=== PATIENT | male | born 1935 | race Caucasian/White ===

== ENCOUNTER 2021-02-16 14:10 | Inpatient (IN) | payer MEDICARE, OTHER ==
[~2021-02-16] VITALS: Ht 177.8 cm; Wt 79.0 kg
[~2021-02-16 14:10] MED LIST: ASPI-247 GT; HYDR-4833 PO; LEV500T PO
[2021-02-16 17:07] LABS: Basophils # (auto) 0.1 10 ^3/uL (0-0.2); Basophils % (auto) 0.7 % (0.0-2.0); Eosinophils # (auto) 0 10 ^3/uL (0-0.8); Eosinophils % (auto) 0.3 % (0.0-7.0); Hematocrit 48.7 % (41.0-53.0); Hemoglobin 16.6 g/dL (13.5-17.5); Lymphocytes # (auto) 0.9 10 ^3/uL (0.4-5.4); Lymphocytes % (auto) 8.7 % (10.0-50.0); Mean Corpuscular Hemoglobin 30.6 pg (28.0-32.0); Mean Corpuscular Hgb Conc. 34.2 g/dL (32.0-36.0); Mean Corpuscular Volume 89.6 fL (80.0-100.0); Monocytes # (auto) 0.5 10 ^3/uL (0-1.3); Monocytes % (auto) 4.8 % (0.0-12.0); Neutrophils # (auto) 8.8 10 ^3/uL (1.6-8.6); Neutrophils % (auto) 85.5 % (37.0-80.0); Nucleated Red Blood Cells % 0.1 %; Red Blood Cells 5.43 10^6/uL (4.5-5.90); Red Cell Distribution Width 13.7 % (11.8-14.3); White Blood Cell 10.3 10^3/uL (4.4-10.8)
[2021-02-16 17:30] LABS: Chloride 108 mmol/L (98-107); Potassium 3.6 mmol/L (3.5-5.1); Sodium 141 mmol/L (136-145)
[2021-02-16 17:40] LABS: Alanine Aminotransferase 19 U/L (16-61); Albumin 3.4 g/dL (3.4-5.0); Alkaline Phosphatase 69 U/L (45-117); Anion Gap 2 (5-15); Aspartate Aminotransferase 14 U/L (15-37); Bilirubin, Total 0.9 mg/dL (0.2-1.0); Blood Urea Nitrogen 17 mg/dL (7-18); Calcium 9.6 mg/dL (8.5-10.1); Carbon Dioxide 31 mmol/L (21-32); GFR African American 73 mL/min; GFR Non-African American 61 mL/min; Glucose 95 mg/dL (74-106); Lipase 101 U/L (73-393); Magnesium 2.6 mg/dL (1.6-2.6); Total Protein 7.3 g/dL (6.4-8.2)
[2021-02-16] MEDS ORDERED: MORPHINE SULF INJ 2 MG/ML SYRINGE 1ML IV ONE (19:00)
[2021-02-16] MEDS ORDERED: cloNIDine HCL 0.1 MG TAB PO ONE (19:00)
[2021-02-16] MEDS ORDERED: ONDANSETRON HCL 4 MG/2 ML VIAL IV ONE (19:00)
[2021-02-16] MEDS ORDERED: NITROGLYCERIN 0.4 MG SL TAB SL PRN (22:00)
[2021-02-16] MEDS ORDERED: hydrALAZINE HCL 20 MG/ML VL IV PRN (22:00)
[2021-02-16] MEDS ORDERED: ONDANSETRON HCL 4 MG/2 ML VIAL IV PRN (22:00)
[2021-02-16] MEDS ORDERED: ACETAMINOPHEN 325 MG TAB PO PRN (22:00)
[2021-02-16] MEDS ORDERED: HYDROcodone-ACET 5/325MG TAB PO PRN (22:00)
[2021-02-16] MEDS ORDERED: MORPHINE SULF INJ 2 MG/ML SYRINGE 1ML IV PRN (22:00)
[2021-02-16] MEDS: ASCORBIC ACID 500 MG TAB PO SCH (23:38)
[2021-02-17] VITALS (8 sets, daily range): BP systolic 102–182; BP diastolic 71–94
[2021-02-17] MEDS: DOCUSATE SOD 100 MG CAP PO PRN (02:02)
[2021-02-17 05:25] LABS: Basophils # (auto) 0.1 10 ^3/uL (0-0.2); Basophils % (auto) 0.9 % (0.0-2.0); Eosinophils # (auto) 0.2 10 ^3/uL (0-0.8); Eosinophils % (auto) 1.2 % (0.0-7.0); Hematocrit 45.3 % (41.0-53.0); Hemoglobin 15.7 g/dL (13.5-17.5); Lymphocytes # (auto) 1.3 10 ^3/uL (0.4-5.4); Lymphocytes % (auto) 10.7 % (10.0-50.0); Mean Corpuscular Hemoglobin 30.8 pg (28.0-32.0); Mean Corpuscular Hgb Conc. 34.7 g/dL (32.0-36.0); Mean Corpuscular Volume 88.8 fL (80.0-100.0); Monocytes # (auto) 0.8 10 ^3/uL (0-1.3); Neutrophils # (auto) 10.2 10 ^3/uL (1.6-8.6); Neutrophils % (auto) 81.2 % (37.0-80.0); Red Cell Distribution Width 13.3 % (11.8-14.3); White Blood Cell 12.5 10^3/uL (4.4-10.8)
[2021-02-17] MEDS ORDERED: MORPHINE SULF INJ 2 MG/ML SYRINGE 1ML IV PRN (05:30)
[2021-02-17 05:47] LABS: Albumin 3.3 g/dL (3.4-5.0); Calcium 8.9 mg/dL (8.5-10.1); Potassium 4.3 mmol/L (3.5-5.1)
[2021-02-17 05:53] LABS: BUN/Creatinine Ratio 15.3; Bilirubin, Total 0.9 mg/dL (0.2-1.0); Total Protein 6.9 g/dL (6.4-8.2)
[2021-02-17] MEDS ORDERED: MANNITOL FTV 25% 12.5 GM/50 ML 50 ML IV ONE (09:45)
[2021-02-17] MEDS: FAMOTIDINE 20 MG TAB PO SCH (11:36)
[2021-02-17] MEDS: MULTIPLE VITAMIN TAB PO SCH (11:36)
[2021-02-17] MEDS: ZINC SULFATE 220mg CAP or TAB PO SCH (11:36)
[2021-02-17] MEDS: HEPARIN SODIUM (PORCINE) 5000 UNITS/ML 1ML VIAL SC SCH ×2 (11:37→21:52)
[2021-02-17] MEDS: ASCORBIC ACID 500 MG TAB PO SCH ×2 (11:37→21:51)
[2021-02-17] MEDS: amLODIPine BESYLATE 5 MG TAB PO SCH (11:43)
[2021-02-17] MEDS ORDERED: TAMSULOSIN HYDROCHLORIDE 0.4 MG CAP PO SCH (18:00)
[2021-02-18] MEDS: DOCUSATE SOD 100 MG CAP PO PRN ×2 (02:04)
[2021-02-18 06:32] LABS: Urine Bacteria NONE SEEN /hpf (None Seen); Urine Blood 2+ /uL (Negative); Urine Specific Gravity 1.009 (1.001-1.035); Urine WBC 1 /hpf (0 - 3)
[2021-02-18 09:00] VITALS: BP 140/76
[2021-02-18] MEDS: MULTIPLE VITAMIN TAB PO SCH (10:43)
[2021-02-18] MEDS: FAMOTIDINE 20 MG TAB PO SCH (10:43)
[2021-02-18] MEDS: ZINC SULFATE 220mg CAP or TAB PO SCH (10:43)
[2021-02-18] MEDS: ASCORBIC ACID 500 MG TAB PO SCH (10:44)
[2021-02-18] MEDS: amLODIPine BESYLATE 5 MG TAB PO SCH (10:44)
[2021-02-18] MEDS ORDERED: SODIUM CHLORIDE 0.9% 1,000 ML IV SCH (10:45)
[2021-02-18] MEDS: HEPARIN SODIUM (PORCINE) 5000 UNITS/ML 1ML VIAL SC SCH (11:02)
[2021-02-18 12:04] LABS: Calcium 8.9 mg/dL (8.5-10.1); Potassium 3.9 mmol/L (3.5-5.1)
[2021-02-18 12:07] LABS: BUN/Creatinine Ratio 16.2
[2021-02-18 13:00] VITALS: BP 156/91
[2021-02-18 16:21] VITALS: BP 140/76
[2021-02-18 17:00] VITALS: BP 147/87
== END 2021-02-18 17:30 | disposition home or self-care (01) | DRG 694 ==
LOC: ER 14:10 → TELE 21:57 → TELE-WESTW 23:55
PROVIDERS: ADMIT Nurse Practitioner Family; ATTEND Hospitalist
DX: N13.2 Hydronephrosis with renal and ureteral calculous obstruction (principal); I10 Essential (primary) hypertension; K21.9 Gastro-esophageal reflux disease without esophagitis; Z20.822 Contact with and (suspected) exposure to COVID-19; K57.30 Diverticulosis of large intestine without perforation or abscess without bleeding; D18.03 Hemangioma of intra-abdominal structures; K40.90 Unilateral inguinal hernia, without obstruction or gangrene, not specified as recurrent; Z80.3 Family history of malignant neoplasm of breast; Z87.442 Personal history of urinary calculi; Z79.899 Other long term (current) drug therapy
CPT/HCPCS: 36415; 71045; 74018; 74176; 80048; 80053; 81001; 83690; 83735; 84484; 85025; 87426; 93005; 96365; 96367; 97163; G0378; J2405

== ENCOUNTER 2023-05-13 07:27 | Inpatient (IN) | payer OTHER, MEDICAID ==
[~2023-05-13] VITALS: Ht 172.7 cm; Wt 71.0 kg
[2023-05-13] MEDS ORDERED: ONDANSETRON ODT 4 MG TAB PO ONE (07:45)
[2023-05-13] MEDS ORDERED: MORPHINE SULFATE INJ 2 MG/ml SYRG IV ONE ×2 (07:45→10:00)
[2023-05-13 07:55] LABS: Basophils # (auto) 0.1 10 ^3/uL (0-0.2); Basophils % (auto) 1.2 % (0.0-2.0); Eosinophils # (auto) 0.3 10 ^3/uL (0-0.8); Eosinophils % (auto) 3.6 % (0.0-7.0); Hematocrit 49.7 % (41.0-53.0); Hemoglobin 16.9 g/dL (13.5-17.5); Lymphocytes # (auto) 1.6 10 ^3/uL (0.4-5.4); Lymphocytes % (auto) 20.1 % (10.0-50.0); Mean Corpuscular Hemoglobin 30.3 pg (28.0-32.0); Mean Corpuscular Hgb Conc. 33.9 g/dL (32.0-36.0); Mean Corpuscular Volume 89.2 fL (80.0-100.0); Monocytes # (auto) 0.5 10 ^3/uL (0-1.3); Monocytes % (auto) 6.2 % (0.0-12.0); Neutrophils # (auto) 5.6 10 ^3/uL (1.6-8.6); Neutrophils % (auto) 68.9 % (37.0-80.0); Red Blood Cells 5.57 10^6/uL (4.5-5.90); Red Cell Distribution Width 13.7 % (11.8-14.3); White Blood Cell 8.1 10^3/uL (4.4-10.8)
[2023-05-13 08:31] LABS: Alanine Aminotransferase 18 U/L (7-40); Albumin 4.1 g/dL (3.2-4.8); Alkaline Phosphatase 78 U/L (46-116); Anion Gap 7 (5-15); Aspartate Aminotransferase 17 U/L (13-40); BUN/Creatinine Ratio 14.3 (10.0-20.0); Blood Urea Nitrogen 17 mg/dL (9-23); Calcium 9.3 mg/dL (8.5-10.1); Carbon Dioxide 27 mmol/L (20-30); Chloride 108 mmol/L (98-107); Glucose 114 mg/dL (74-106); Potassium 3.8 mmol/L (3.5-5.1); Sodium 142 mmol/L (136-145)
[2023-05-13 08:32] LABS: Bilirubin, Total 0.6 mg/dL (0.2-1.0); Total Protein 6.6 g/dL (5.7-8.2)
[2023-05-13 09:19] LABS: Lipase 46 U/L (12-53); Magnesium 1.9 mg/dL (1.6-2.6)
[2023-05-13] MEDS ORDERED: metroNIDAZOLE 500MG/100ML 100 ML IV ONE (10:00)
[2023-05-13] MEDS ORDERED: ceFAZolin 2 GM/D5W100ml 100 ML IV ONE (10:00)
[2023-05-13 10:25] LABS: INR 1.02 (0.9-1.15); Partial Thromboplastin Time 28.8 SEC (24.5-34.5); Prothrombin Time 10.7 sec (9.3-11.8)
[2023-05-13] MEDS ORDERED: ceFAZolin 1GM/50ML 50 ML IV ONE (10:53)
[2023-05-13] MEDS ORDERED: SUCCINYLCHOLINE CHLORIDE 20 MG/ML 10ML VIAL IV ONE (11:03)
[2023-05-13] MEDS ORDERED: PROPOFOL 10 MG/ML 20 ML IV ONE (11:04)
[2023-05-13] MEDS ORDERED: fentaNYL CITRATE 100 MCG/2 ML VL ONE (11:04)
[2023-05-13] MEDS: ceFAZolin 1GM/50ML 50 ML IV ONE (11:16)
[2023-05-13] MEDS ORDERED: ONDANSETRON HCL 4 MG/2 ML VIAL ONE (11:30)
[2023-05-13] MEDS ORDERED: MORPHINE SULFATE INJ 2 MG/ml SYRG IV PRN ×2 (11:30→11:45)
[2023-05-13] MEDS ORDERED: ACETAMINOPHEN IV 100 ML IV ONE (11:37)
[2023-05-13] MEDS ORDERED: MEPERIDINE HCL (25 MG/ML) 1ML VIAL IV PRN (12:00)
[2023-05-13] MEDS ORDERED: PIPERACILLIN-TAZOB 3.375GM 100 ML IV ONE (12:00)
[2023-05-13] MEDS ORDERED: ONDANSETRON HCL 4 MG/2 ML VIAL IV PRN (12:00)
[2023-05-13] MEDS ORDERED: HYDROmorphone HCL 2 MG/ML VL/or syr IV PRN (12:00)
[2023-05-13] MEDS ORDERED: ePHEDrine SULFATE 50 MG/ML AMP ONE (12:04)
[2023-05-13] MEDS ORDERED: SUGAMMADEX 200mg/2ml Vial (100MG/ML) IV ONE (12:05)
[2023-05-13] MEDS ORDERED: ROCURONIUM 10MG/ML 10ML VIAL IV ONE (12:05)
[2023-05-13 12:20] VITALS: RESP 26; O2SAT 97
[2023-05-13] MEDS ORDERED: LABETALOL HCL 5 MG/ML 4ML SYRINGE IV ONE (13:00)
[2023-05-13] MEDS ORDERED: PIPERACILLIN-TAZOB 3.375GM 100 ML IV SCH (14:00)
[2023-05-13 14:05] VITALS: BP 183/102; PULSE 74; RESP 18; TEMP 97.5; O2SAT 94
[2023-05-13] MEDS ORDERED: LABETALOL HCL 5 MG/ML 4ML SYRINGE IV PRN (14:15)
[2023-05-13] MEDS: SODIUM CHLORIDE 0.9% 1,000 ML IV SCH (14:47)
[2023-05-13 16:00] VITALS: BP 170/98; PULSE 64; RESP 20; TEMP 98; O2SAT 93
[2023-05-13 20:00] VITALS: BP 160/93; PULSE 64; RESP 18; TEMP 98.2
[2023-05-13] MEDS: PIPERACILLIN-TAZOB 3.375GM 100 ML IV SCH (21:31)
[2023-05-13 22:00] VITALS: BP 160/93; PULSE 64; RESP 18; TEMP 98.2; O2SAT 94
[2023-05-14] MEDS: SODIUM CHLORIDE 0.9% 1,000 ML IV SCH (04:10)
[2023-05-14 05:00] VITALS: BP 139/85; PULSE 72; RESP 18; TEMP 97.8; O2SAT 92
[2023-05-14] MEDS: PIPERACILLIN-TAZOB 3.375GM 100 ML IV SCH ×2 (06:27→13:06)
[2023-05-14 06:39] LABS: Alanine Aminotransferase 10 U/L (7-40); Albumin 3.7 g/dL (3.2-4.8); Alkaline Phosphatase 67 U/L (46-116); Anion Gap 7 (5-15); Aspartate Aminotransferase 15 U/L (13-40); BUN/Creatinine Ratio 7.8 (10.0-20.0); Bilirubin, Total 1.3 mg/dL (0.2-1.0); Blood Urea Nitrogen 9 mg/dL (9-23); Calcium 8.9 mg/dL (8.7-10.4); Carbon Dioxide 27 mmol/L (20-30); Chloride 105 mmol/L (98-107); Glucose 88 mg/dL (74-106); Potassium 4.1 mmol/L (3.5-5.1); Sodium 139 mmol/L (136-145); Total Protein 6.1 g/dL (5.7-8.2)
[2023-05-14 07:08] LABS: Basophils # (auto) 0 10 ^3/uL (0-0.2); Basophils % (auto) 0.4 % (0.0-2.0); Eosinophils # (auto) 0.2 10 ^3/uL (0-0.8); Eosinophils % (auto) 1.5 % (0.0-7.0); Hematocrit 47.1 % (41.0-53.0); Hemoglobin 15.5 g/dL (13.5-17.5); Lymphocytes # (auto) 1.1 10 ^3/uL (0.4-5.4); Lymphocytes % (auto) 10.3 % (10.0-50.0); Mean Corpuscular Hemoglobin 30.2 pg (28.0-32.0); Mean Corpuscular Volume 91.6 fL (80.0-100.0); Monocytes # (auto) 0.9 10 ^3/uL (0-1.3); Monocytes % (auto) 7.8 % (0.0-12.0); Neutrophils # (auto) 8.8 10 ^3/uL (1.6-8.6); Nucleated Red Blood Cells % 0.1 %; Red Blood Cells 5.14 10^6/uL (4.5-5.90); Red Cell Distribution Width 13.7 % (11.8-14.3)
[2023-05-14 08:00] VITALS: BP 160/93; PULSE 64; PULSE 82; RESP 17; RESP 18; TEMP 98.2
[2023-05-14 08:52] VITALS: BP 148/87; PULSE 82; RESP 17; TEMP 98.6; O2SAT 94
[2023-05-14 13:52] VITALS: BP 148/86; PULSE 72; RESP 18; TEMP 98.3; O2SAT 95
[2023-05-14 17:09] VITALS: BP 144/91; PULSE 85; RESP 18; TEMP 97.6; O2SAT 95
[2023-05-14] MEDS ORDERED: TPN PER PHARMACY IV NR ×10 (20:00)
== END 2023-05-14 19:34 | disposition home health service (06) | DRG 352 ==
LOC: ER 07:27 → OVERFLOW 11:27 → CENTRAL 13:48
PROVIDERS: ADMIT Student in an Organized Health Care Education/Training Program; ATTEND Student in an Organized Health Care Education/Training Program
PROC: 0YQ50ZZ Repair Right Inguinal Region, Open Approach (ICD-10-PCS; principal; 2023-05-13 11:16)
DX: K40.31 Unilateral inguinal hernia, with obstruction, without gangrene, recurrent (principal); Z66 Do not resuscitate; K21.9 Gastro-esophageal reflux disease without esophagitis; R16.0 Hepatomegaly, not elsewhere classified; Z87.442 Personal history of urinary calculi; Z80.3 Family history of malignant neoplasm of breast; Z86.12 Personal history of poliomyelitis
CPT/HCPCS: 36415; 71045; 74176; 80053; 83690; 83735; 84484; 85025; 85610; 85730; 86850; 86900; 86901; 88302; 93306; 97163; 99291; G0378; J0131; J0330; J0690; J2405; J2543; J2704; J3490; Q0162

== ENCOUNTER 2023-05-22 10:26 | Emergency (ER) | payer OTHER, MEDICAID ==
[~2023-05-22] VITALS: Ht 172.7 cm; Wt 74.8 kg
[2023-05-22 11:18] VITALS: BP 178/86; PULSE 78; RESP 12; O2SAT 98
[2023-05-22] MEDS ORDERED: TRIA37.587 PO (11:20)
== END 2023-05-22 11:27 | disposition left against medical advice (07) ==
LOC: ER 10:26
DX: I10 Essential (primary) hypertension (principal); K21.9 Gastro-esophageal reflux disease without esophagitis; Z48.00 Encounter for change or removal of nonsurgical wound dressing; Z87.442 Personal history of urinary calculi
CPT/HCPCS: 93005

== ENCOUNTER 2023-06-13 15:11 | Emergency (ER) | payer OTHER, MEDICAID ==
[~2023-06-13] VITALS: Ht 170.2 cm; Wt 62.0 kg
[~2023-06-13 15:11] MED LIST changes: +TRIA37.587 PO
[2023-06-13 16:48] LABS: Basophils # (auto) 0.1 10 ^3/uL (0-0.2); Basophils % (auto) 0.5 % (0.0-2.0); Eosinophils # (auto) 0.2 10 ^3/uL (0-0.8); Eosinophils % (auto) 1.6 % (0.0-7.0); Hematocrit 50.4 % (41.0-53.0); Hemoglobin 16.8 g/dL (13.5-17.5); Lymphocytes # (auto) 0.8 10 ^3/uL (0.4-5.4); Lymphocytes % (auto) 5.5 % (10.0-50.0); Mean Corpuscular Hemoglobin 29.7 pg (28.0-32.0); Mean Corpuscular Hgb Conc. 33.4 g/dL (32.0-36.0); Monocytes # (auto) 0.7 10 ^3/uL (0-1.3); Monocytes % (auto) 5.2 % (0.0-12.0); Neutrophils # (auto) 12.3 10 ^3/uL (1.6-8.6); Neutrophils % (auto) 87.2 % (37.0-80.0); Nucleated Red Blood Cells % 0.1 %; Red Blood Cells 5.66 10^6/uL (4.5-5.90); Red Cell Distribution Width 13.2 % (11.8-14.3); White Blood Cell 14.1 10^3/uL (4.4-10.8)
[2023-06-13 17:10] LABS: Alanine Aminotransferase 14 U/L (7-40); Albumin 4.2 g/dL (3.2-4.8); Alkaline Phosphatase 67 U/L (46-116); Anion Gap 10 (5-15); Aspartate Aminotransferase 26 U/L (13-40); BUN/Creatinine Ratio 17.6 (10.0-20.0); Bilirubin, Total 0.9 mg/dL (0.2-1.0); Blood Urea Nitrogen 22 mg/dL (9-23); Calcium 9.6 mg/dL (8.7-10.4); Carbon Dioxide 23 mmol/L (20-30); Chloride 106 mmol/L (98-107); Glucose 104 mg/dL (74-106); Potassium 3.9 mmol/L (3.5-5.1); Sodium 139 mmol/L (136-145); Total Protein 6.7 g/dL (5.7-8.2)
[2023-06-13 19:19] VITALS: BP 136/81; PULSE 81; RESP 16; O2SAT 94
== END 2023-06-13 22:06 | disposition left against medical advice (07) ==
LOC: ER 15:11 → EDBD 15:11 → ER 22:06
DX: R55 Syncope and collapse (principal); I10 Essential (primary) hypertension; K21.9 Gastro-esophageal reflux disease without esophagitis
CPT/HCPCS: 36415; 80053; 84484; 85025; 93005